=== PATIENT | female | born 1990 | race Caucasian/White ===

== ENCOUNTER 2016-10-13 21:33 | Inpatient (IN) | payer BC ==
[~2016-10-13] VITALS: Ht 152.4 cm; Wt 68.9 kg
[~2016-10-13 21:33] MED LIST: IBUPROFEN800 MG PO; IRON325 M1 PO; PRENATAL TABLE1 EAC3 PO
[2016-10-13 21:49] VITALS: BP 110/70
[2016-10-13 22:47] LABS: EOSINOPHIL (%) 0.8 % (0-5); EOSINOPHIL COUNT 0.1 K/uL (0-0.3); HEMATOCRIT 33.9 % (36.0-46.0); IMMATURE GRANULOCYTE (%) 0.2 % (0.0-0.7); IMMATURE GRANULOCYTE COUNT 0.2 K/uL; LYMPHOCYTE COUNT 2.9 K/uL (1.0-2.8); MCH 30.3 PG (29.0-34.0); MCHC 34.2 G/DL (30.0-36.0); MCV 88.5 FL (83-99); MEAN PLAT.VOLUME 11.2 uM^3 (9.5-12.4); MONOCYTE (%) 9.1 % (3-12); MONOCYTE COUNT 0.9 K/uL (0-0.8); NEUTROPHIL COUNT 5.8 K/uL (1.8-6.4); PLATELET COUNT 204 K/uL (156-360); RBC DIS.WIDTH-CV 13.3 % (11.8-14.6); RBC DIS.WIDTH-SD 41.9 % (39-53); RED BLOOD COUNT 3.83 M/uL (3.80-5.20); WHITE BLOOD COUNT 9.7 K/uL (4.1-10.2)
[2016-10-13] MEDS ORDERED: ZOFRAN4 MG PO (23:15)
[2016-10-13 23:47] LABS: AMPHETAMINES QUANT VALUE 0 NG/ML; BARBITUATES QUANT VALUE 0 NG/ML; BENZODIAZEPINES QUANT VALUE 0 NG/ML; BENZODIAZEPINES, URINE SCREEN Negative (200 ng/mL); MARIJUANA QUANT VALUE 0 NG/ML; OPIATES QUANTITATIVE VALUE 0 NG/ML; PHENCYCLIDINE QUANT VALUE 0 NG/ML
[2016-10-13 23:59] LABS: CHLORIDE 105 mEq/L (99-109); POTASSIUM 4.3 mEq/L (3.7-5.4); SODIUM 138 mEq/L (136-147)
[2016-10-14] VITALS (10 sets, daily range): BP systolic 102–121; BP diastolic 58–70
[2016-10-14 00:01] LABS: GLUCOSE 101 mg/dL (70-99)
[2016-10-14 00:02] LABS: ANION GAP 11 MEQ/L (2-14)
[2016-10-14 00:03] LABS: TOTAL BILIRUBIN 0.2 mg/dL (0.0-1.0)
[2016-10-14 00:04] LABS: ALKALINE PHOSPHATASE 56 IU/L (3-129)
[2016-10-14 00:05] LABS: GFR ESTIMATE (CALCULATED) > 59 mL/min/
[2016-10-14 00:06] LABS: UREA NITROGEN (BUN) 14 mg/dL (9-23)
[2016-10-14 00:23] LABS: INTER. NORMALIZED RATIO 0.9; PROTHROMBIN TIME 9.5 (9.2-11.2); PTT 25.8 (25-32)
[2016-10-14 00:41] LABS: FIBRINOGEN 459 MG/DL (160-450)
== END 2016-10-14 09:55 | disposition home or self-care (01) | DRG 775 ==
LOC: LDRP-OP 21:33 → 2WEST 21:34 → LDRP-OP 03-30 12:33
PROVIDERS: Advanced Practice Midwife; Obstetrics & Gynecology
DX: O36.4XX0 Maternal care for intrauterine death, not applicable or unspecified (principal); O69.89X0 Labor and delivery complicated by other cord complications, not applicable or unspecified; Z3A.20 20 weeks gestation of pregnancy; Z37.1 Single stillbirth; O99.214 Obesity complicating childbirth; E66.3 Overweight
CPT/HCPCS: 76805; 80053; 85025; 85384; 85610; 85730; 86850; 86900; 86901; 88305; C1755; G0378; J7120

== ENCOUNTER 2017-07-09 13:20 | Day surgery (SDC) | payer BC ==
[~2017-07-09] VITALS: Ht 152.4 cm; Wt 70.2 kg
[~2017-07-09 13:20] MED LIST changes: +ZOFRAN4 MG PO
[2017-07-09 13:58] VITALS: BP 122/69
[2017-07-09] MEDS ORDERED: IBUPROFEN800 MG PO (18:03)
[2017-07-09] MEDS ORDERED: HYDROCODON-ACE1 EAC7 PO (18:03)
[2017-07-09 18:30] VITALS: BP 106/62
[2017-07-09 19:26] VITALS: BP 126/7
== END 2017-07-09 19:31 | disposition home or self-care (01) ==
LOC: SDC 13:20
PROC: 10D17ZZ Extraction of Products of Conception, Retained, Via Natural or Artificial Opening (ICD-10-PCS; principal; 2017-07-09)
DX: O02.1 Missed abortion (principal); Z3A.11 11 weeks gestation of pregnancy; E66.9 Obesity, unspecified; Z68.30 Body mass index [BMI] 30.0-30.9, adult; F32.9 Major depressive disorder, single episode, unspecified; Z80.3 Family history of malignant neoplasm of breast; J45.909 Unspecified asthma, uncomplicated
CPT/HCPCS: 76815; 88305; J0690; J2175; J2250; J3010